=== PATIENT | female | born 1960 | race Caucasian/White ===

== ENCOUNTER 2016-08-07 08:21 | Emergency (ER) | payer OTHER ==
--- NOTE | 2016-08-07 09:15 | DX ---
Right Foot , Three History: Pain and swelling of the base of the fifth metatarsal, Trauma COMPARISON: November 04, 2012 Findings: There is an acute transverse fracture coursing through the base of the fifth metatarsal. Th e fracture is slightly distracted. There is no significant angulation or lateral displacement. Overal l mineralization is normal. There is a stable solid osteotomy of the first metatarsal. Impression: Acute avulsion injury proximal fifth metatarsal base
[2016-08-07] MEDS ORDERED: OXYCODONE/APAP 5/325 TAB PO ONE (09:36)
--- NOTE | 2016-08-07 10:37 | EDPHY ---
[id number] on the ice this morning REVIEW OF SYSTEMS: Ten systems reviewed and are negative unless otherwise noted in the HPI EXAMINATION General Appearance: Alert, no distress Head: normocephalic, atraumatic Eyes: Pupils equal and round, no conjunctival pallor or injection ENT, Mouth: Mucous membranes moist Neck: Normal inspection Respiratory: No dyspnea or retractions. No distress Cardiovascular: Pulses normal throughout With symmetric 2+ radial and DP pulses. Brisk cap refill Gastrointestinal: No distention Back: Mild tenderness of the soft tissues about the lumbar region. No bony tenderness, crepitus, step-off or deformity. Range of motion intact with minimal pain. Neurological: A&O, sensory symmetric, strength symmetric. Reflexes symmetric patellar and Achilles Skin: Warm and dry, no rash . Mild ecchymosis about the base of the right 5th metatarsal. Extremities: Tender to palpation of the right base of the 5th metatarsal. There is associated edema. Range of motion is intact otherwise. No heel tenderness. Brisk cap refill in all 5 toes. Neurovascular intact otherwise. Psychiatric: Mood and affect normal MDM: fall with right proximal 5th metatarsal fracture neurovascular intact distally. She has been placed in a Max boot with this. She remains neurovascular intact after this. She has ambulated without complication. She also has a chronic back pain that has been exacerbated with a muscle strain. She has no bony tenderness of the back. She has no evidence of acute cord compression. She will be discharged home with pain medication, Flexeril, Max boot and instructions to follow up with Orthopedics and Neurosurgery for ongoing care. she is comfortable with this plan and. We did discuss ER precautions including worsening back pain, saddle anesthesia, incontinence of bowel or bladder, or retention of bowel or bladder. Also recommend follow-up with Orthopedics for definitive care of the foot. ED Precautions: Worsening pain. Erythema, edema, cyanosis, pallor, paresthesia or anesthesia. SUPERVISION:This patient was independently evaluated without the aide of supervising physician. - History Smoking Status: Never smoked - Objective Vital Signs: Initial Vital Signs Temperature (C) 98.1 F 08/07/16 08:24 Heart Rate 78 08/07/16 08:24 Respiratory Rate 16 08/07/16 08:24 Blood Pressure 133/91 H 08/07/16 08:24 O2 Sat (%) 96 08/07/16 08:24 O2 Delivery Mode Room Air Allergies/Adverse Reactions: Penicillins Allergy (Verified 03/14/12 13:37) Rash Home Medications: Medication Instructions Recorded Cyclobenzaprine [Flexeril 10 MG 10 mg PO TID PRN #15 tab 08/07/16 (*)] Neurontin 08/07/16 Wellbutrin Sr 08/07/16 oxyCODONE HCL/ACETAMINOPHEN 1 each PO Q4-6PRN PRN #20 tablet 08/07/16 [Percocet 5-325 mg Tablet] traZODone 08/07/16 Medications Given: Discontinued Medications Oxycodone/Acetaminophen (Percocet 5/325) 2 tab PO EDNOW ONE Stop: 08/07/16 09:37 Last Admin: 08/07/16 09:49 Dose: 2 tab Departure - Departure Disposition: Home, Routine, Self-Care Clinical Impression: Metatarsal stress fracture of right foot Chronic back pain Qualifiers: Back pain location: low back pain Back pain laterality: bilateral Sciatica presence: without sciatica Qualifier Code: (M54.5) Low back pain Acute low back pain Qualifiers: Back pain laterality: bilateral Sciatica presence: without sciatica Qualifier Code: (M54.5) Low back pain Condition: Good Instructions: Acute Low Back Pain (ED), Low Back Strain (ED), Foot Fracture in Adults (ED) Referrals: Doctor Not,On Staff, MD [Primary Care Provider] - As per Instructions Ankit Craven MD [Medical Doctor] - As per Instructions Ehsan Smith MD [Medical Doctor] - As per Instructions Prescriptions: Cyclobenzaprine [Flexeril 10 MG (*)] 10 mg PO TID PRN #15 tab PRN Reason: Spasms oxyCODONE HCL/ACETAMINOPHEN [Percocet 5-325 mg Tablet] 1 each PO Q4-6PRN PRN # 20 tablet PRN Reason: Pain, Moderate
[2016-08-07 10:53] VITALS: BP 151/95; PULSE 68; RESP 18; TEMP 98.6; O2SAT 95
== END 2016-08-07 10:55 | disposition home or self-care (01) ==
DX: S92.351A Displaced fracture of fifth metatarsal bone, right foot, initial encounter for closed fracture (principal); S39.92XA Unspecified injury of lower back, initial encounter; G89.29 Other chronic pain; W00.0XXA Fall on same level due to ice and snow, initial encounter
CPT/HCPCS: L4386